=== PATIENT | male | born 1965 | race Caucasian/White ===

== ENCOUNTER 2018-12-24 13:04 | Inpatient (IN) | payer OTHER ==
[~2018-12-24 13:04] MED LIST: HEPARIN 10,000 UNITS/10 ML IV ONE
[2018-12-24] MEDS ORDERED: NACL 0.9% 1000 ML 1,000 ML IV ONE (13:10)
[2018-12-24] MEDS ORDERED: HEPARIN IV ONE (13:10)
[2018-12-24] MEDS ORDERED: PLAVIX PO ONE (13:14)
[2018-12-24] MEDS ORDERED: SUBLIMAZE ONE (13:20)
[2018-12-24] MEDS ORDERED: VERSED ONE (13:20)
[2018-12-24] MEDS ORDERED: HEPARIN 10,000 UNITS/10 ML ONE ×2 (13:20→13:25)
[2018-12-24] MEDS ORDERED: HEPARIN/NS 5000 UNIT/500ML(CATH LAB) 1,000 ML IR ONE (13:20)
[2018-12-24 13:22] LABS: Basophils # (Auto) 0.1 K/mm3 (0.0-0.1); Basophils % (Auto) 1.2 % (0.0-1.8); Eosinophils # (Auto) 0.1 K/mm3 (0.0-0.4); Eosinophils % (Auto) 1.2 % (0.0-4.3); Hemoglobin 15.4 gm/dl (11.8-15.2); Lymphocytes # (Auto) 2.2 K/mm3 (1.2-5.4); Lymphocytes % (Auto) 28.6 % (13.4-35.0); Mean Corpuscular HGB Conc 34 % (32-34); Mean Corpuscular Volume 90 fl (84-94); Monocytes # (Auto) 0.6 K/mm3 (0.0-0.8); Monocytes % (Auto) 7.7 % (0.0-7.3); Platelet Count 159 K/mm3 (140-440); Red Blood Count 4.98 M/mm3 (3.65-5.03); Red Cell Distribution Width 14.8 % (13.2-15.2)
--- NOTE | 2018-12-24 13:22 | Emergency Department Report ---
ED Chest Pain HPI - General Chief Complaint: Chest Pain Stated Complaint: STEMI Time Seen by Provider: 12/24/18 13:10 Source: EMS Mode of arrival: Stretcher Limitations: Language Barrier (stevedoring supervisor used Brazilian-speaking speaking) - History of Present Illness Initial Comments: 53-year-old male with a past medical history of diabetes which his "diet and exercise controlled" visits to the hospital complains of chest pain since 10 AM. Patient have a nausea and diaphoresis. Pain is constant. Patient presents to 5 department had a EKG does show ST elevation WI. Patient was subsequently transferred to the ED. He received aspirin and 1 nitroglycerin in route. Systolic blood pressure dropped to 98 after 1 nitroglyerin. Pt does not take any medications at home including aspirin. He states he does not smoke cigarettes. He denies history of previous heart problems. - Related Data Previous Rx's Medication Instructions Recorded Last Taken Type Cyclobenzaprine [Flexeril 10 MG 10 mg PO TID PRN #30 tablet 02/24/15 Unknown Rx TAB] Ibuprofen [Motrin] 800 mg PO Q8HR #30 tablet 02/24/15 Unknown Rx traMADol [Ultram 50 MG tab] 50 mg PO Q6HR PRN #20 tablet 02/24/15 Unknown Rx Allergies Allergy/AdvReac Type Severity Reaction Status Date / Time No Known Allergies Allergy Unverified 02/23/15 23:15 Heart Score - HEART Score History: Highly suspicious EKG: Significant ST-depression Age: 45-65 Risk factors: 1-2 risk factors Troponin: < normal limit HEART Score: 6 ED Review of Systems ROS: Stated complaint: STEMI Other details as noted in HPI Comment: All other systems reviewed and negative ED Past Medical Hx - Past Medical History Previous Medical History?: Yes Hx Dementia: Yes - Surgical History Past Surgical History?: No - Social History Smoking Status: Never Smoker Substance Use Type: None - Medications Home Medications: Home Medications Medication Instructions Recorded Confirmed Last Taken Type Cyclobenzaprine [Flexeril 10 MG 10 mg PO TID PRN #30 tablet 02/24/15 Unknown Rx TAB] Ibuprofen [Motrin] 800 mg PO Q8HR #30 tablet 02/24/15 Unknown Rx traMADol [Ultram 50 MG tab] 50 mg PO Q6HR PRN #20 tablet 02/24/15 Unknown Rx ED Physical Exam - General Limitations: Language Barrier - Other Other exam information: General: no acute distress Head: Atraumatic, normocephalic Eyes: Normal appearance, pupils equal and reactive to light, extraocular movements intact ENT: normal oropharynx Neck: Normal appearance, no stridor, no meningismus, no midline tenderness. Cardiovascular: Regular rate and rhythm Chest: Clear to auscultation, no wheezes, rales, or crackles Abdomen: nondistended, soft, nontender, no rebound or guarding Extremity: Normal appearance, no deformity, full range of motion, tenderness or leg edema Neuro: Alert and oriented 3, clear speech, no gross motor or sensory deficit Skin: No warmth, erythema, no diaphoresis ED Course Vital Signs 12/24/18 12/24/18 13:04 13:11 Temperature 98.6 F Pulse Rate 81 Respiratory 18 18 Rate Blood Pressure 151/86 O2 Sat by Pulse 99 Oximetry - Consultations Consultation #1: 12/24/18 13:05 case d/w DR Montiel, pt is a excavation laborer candidate. OUMAR score - Oumar Score Age > 65: (0) No Aspirin use within the Past 7 Days: (0) No 3 or more CAD Risk Factors: (0) No 2 or more Angina events in past 24 hrs: (1) Yes Known CAD with more than 50% Stenosis: (0) No Elevated Cardiac Markers: (0) No ST Deviation Greater than 0.5mm: (1) Yes OUMAR Score: 2 ED Medical Decision Making - Lab Data Result diagrams: 12/24/18 13:12 12/24/18 13:12 Lab Results 12/24/18 12/24/18 12/24/18 Range/Units 13:12 13:12 13:12 WBC 7.8 (4.5-11.0) K/mm3 RBC 4.98 (3.65-5.03) M/mm3 Hgb 15.4 H (11.8-15.2) gm/dl Hct 45.0 (35.5-45.6) % MCV 90 (84-94) fl MCH 31 (28-32) pg MCHC 34 (32-34) % RDW 14.8 (13.2-15.2) % Plt Count 159 (140-440) K/mm3 Lymph % (Auto) 28.6 (13.4-35.0) % [place] % (Auto) 7.7 H (0.0-7.3) % Eos % (Auto) 1.2 (0.0-4.3) % Baso % (Auto) 1.2 (0.0-1.8) % Lymph # 2.2 (1.2-5.4) K/mm3 [place] # 0.6 (0.0-0.8) K/mm3 Eos # 0.1 (0.0-0.4) K/mm3 Baso # 0.1 (0.0-0.1) K/mm3 Seg Neutrophils % 61.3 (40.0-70.0) % Seg Neutrophils # 4.8 (1.8-7.7) K/mm3 PT 12.8 (12.2-14.9) Sec. INR 0.99 (0.87-1.13) APTT 26.8 (24.2-36.6) Sec. Sodium 136 L (137-145) mmol/L Potassium 4.0 (3.6-5.0) mmol/L Chloride 97.7 L (98-107) mmol/L Carbon Dioxide 25 (22-30) mmol/L Anion Gap 17 mmol/L BUN 18 (9-20) mg/dL Creatinine 1.2 (0.8-1.5) mg/dL Estimated GFR > 60 ml/min BUN/Creatinine Ratio 15 % Glucose 191 H (75-100) mg/dL POC Glucose (70-105) Calcium 9.5 (8.4-10.2) mg/dL Total Creatine Kinase 205 H (55-170) units/L CK-MB (CK-2) 4.3 H (0.0-4.0) ng/mL CK-MB (CK-2) Rel Index 2.0 (0-4) Troponin T < 0.010 (0.00-0.029) ng/mL Blood Type Antibody Screen 12/24/18 12/24/18 Range/Units 13:12 13:26 WBC (4.5-11.0) K/mm3 RBC (3.65-5.03) M/mm3 Hgb (11.8-15.2) gm/dl Hct (35.5-45.6) % MCV (84-94) fl MCH (28-32) pg MCHC (32-34) % RDW (13.2-15.2) % Plt Count (140-440) K/mm3 Lymph % (Auto) (13.4-35.0) % [place] % (Auto) (0.0-7.3) % Eos % (Auto) (0.0-4.3) % Baso % (Auto) (0.0-1.8) % Lymph # (1.2-5.4) K/mm3 [place] # (0.0-0.8) K/mm3 Eos # (0.0-0.4) K/mm3 Baso # (0.0-0.1) K/mm3 Seg Neutrophils % (40.0-70.0) % Seg Neutrophils # (1.8-7.7) K/mm3 PT (12.2-14.9) Sec. INR (0.87-1.13) APTT (24.2-36.6) Sec. Sodium (137-145) mmol/L Potassium (3.6-5.0) mmol/L Chloride (98-107) mmol/L Carbon Dioxide (22-30) mmol/L Anion Gap mmol/L BUN (9-20) mg/dL Creatinine (0.8-1.5) mg/dL Estimated GFR ml/min BUN/Creatinine Ratio % Glucose (75-100) mg/dL POC Glucose 177 H (70-105) Calcium (8.4-10.2) mg/dL Total Creatine Kinase (55-170) units/L CK-MB (CK-2) (0.0-4.0) ng/mL CK-MB (CK-2) Rel Index (0-4) Troponin T (0.00-0.029) ng/mL Blood Type O POSITIVE Antibody Screen Negative - EKG Data -: EKG Interpreted by Me (inferior posterior WI likely involving the right ventricle vR elevation) EKG shows normal: sinus rhythm, axis (qrs 54), QRS complexes (qrsd 114), ST-T waves (st elevate inf and right lateral leads.) Rate: normal (79) - Medical Decision Making CODE Stemi called after pt arrival case d/w cardiology tx with heparin bolus and plavix stat transfer to excavation laborer stevedoring supervisor used - Differential Diagnosis mi, disection, pe, unstable angina Critical Care Time: No Critical care attestation.: If time is entered above; I have spent that time in minutes in the direct care of this critically ill patient, excluding procedure time. ED Disposition Clinical Impression: STEMI (ST elevation myocardial infarction) Disposition: 09 OP ADMIT IP TO THIS HOSP Is pt being admited?: Yes Does the pt Need Aspirin: Yes Condition: Stable Time of Disposition: 13:00 (admission/transfer to excavation laborer/Dr Buckner aware)
[2018-12-24] MEDS ORDERED: NACL 0.9% 500 ML 0 ML ONE (13:24)
[2018-12-24] MEDS ORDERED: HEPARIN/ 0.45% NACL-25,000 UNIT/500 ML ONE (13:25)
[2018-12-24] MEDS ORDERED: ATROPINE 0.1% (CARDIAC) ONE (13:32)
[2018-12-24 13:33] LABS: INR 0.99 (0.87-1.13); Partial Thromboplastin Time 26.8 Sec. (24.2-36.6)
[2018-12-24] MEDS ORDERED: XYLOCAINE 2% INFILTRATI ONE ×2 (13:35→13:49)
[2018-12-24] MEDS ORDERED: NITROGLYCERIN SYRINGE 3 ML ONE (13:37)
[2018-12-24] MEDS ORDERED: HEPARIN 10,000 UNITS/10 ML 5,000 UNIT in NACL 0.9% 500 ML 500 ML IR ONE ×2 (13:41→13:42)
[2018-12-24 13:42] LABS: Creatine Kinase MB 4.3 ng/mL (0.0-4.0)
[2018-12-24 13:43] LABS: BUN/Creatinine Ratio 15; Blood Urea Nitrogen 18 mg/dL (9-20); Calcium 9.5 mg/dL (8.4-10.2); Hemolysis Index 10
[2018-12-24] MEDS ORDERED: SUBLIMAZE IV ONE (13:46)
[2018-12-24] MEDS ORDERED: VERSED IV ONE (13:46)
[2018-12-24] MEDS ORDERED: ATROPINE IV ONE (13:57)
[2018-12-24] MEDS ORDERED: HEPARIN/ 0.45% NACL-25,000 UNIT/500 ML 25,000 UNIT/500 ML BAG IV SCH (14:00)
[2018-12-24] MEDS ORDERED: HEPARIN 10,000 UNITS/10 ML IV ONE ×2 (14:00→14:14)
[2018-12-24] MEDS ORDERED: ULTRAM PO PRN (14:14)
[2018-12-24] MEDS ORDERED: FLEXERIL PO PRN (14:14)
--- NOTE | 2018-12-24 14:14 | History and Physical Report ---
History of Present Illness Date of examination: 12/24/18 Date of admission: 12/24/2018 Chief complaint: Severe chest pain since 10 AM History of present illness: 53-year-old male with history of diabetes comes in for left-sided chest pain since 10 AM. Associated with nausea and diaphoresis. Radiation to the left arm present. Palpitations present. 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 Blood pressure dropped to systolics 98 after nitroglycerin. Patient is not on any medications. He says his diabetes is diet-controlled Past Medical History Previous Medical History?: Yes Arthritis Diabetes Surgical History Past Surgical History?: No Social History Smoking Status: Never Smoker Substance Use Type: None Family history Htn Medications Home Medications: Home Medications Medication Instructions Recorded Confirmed Last Taken Type Cyclobenzaprine [Flexeril 10 MG 10 mg PO TID PRN #30 tablet 02/24/15 Unknown Rx TAB] Ibuprofen [Motrin] 800 mg PO Q8HR #30 tablet 02/24/15 Unknown Rx traMADol [Ultram 50 MG tab] 50 mg PO Q6HR PRN #20 tablet 02/24/15 Unknown Rx Review of Systems ROS: Stated complaint: Severe chest pain associated with diaphoresis Otherwise review of systems is negative Other details as noted in HPI Comment: All other systems reviewed and negative Medications and Allergies Allergies Allergy/AdvReac Type Severity Reaction Status Date / Time No Known Allergies Allergy Unverified 02/23/15 23:15 Home Medications Medication Instructions Recorded Confirmed Last Taken Type Cyclobenzaprine [Flexeril 10 MG 10 mg PO TID PRN #30 tablet 02/24/15 12/24/18 Unknown Rx TAB] Ibuprofen [Motrin] 800 mg PO Q8HR #30 tablet 02/24/15 12/24/18 Unknown Rx traMADol [Ultram 50 MG tab] 50 mg PO Q6HR PRN #20 tablet 02/24/15 12/24/18 Unknown Rx Exam - Constitutional Vitals: Temp Pulse Resp BP Pulse Ox 98.6 F 81 18 151/86 99 12/24/18 13:04 12/24/18 13:04 12/24/18 13:11 12/24/18 13:04 12/24/18 13:11 General appearance: Present: no acute distress, well-nourished - EENT Eyes: Present: PERRL ENT: hearing intact, clear oral mucosa - Neck Neck: Present: supple, normal ROM - Respiratory Respiratory effort: normal Respiratory: bilateral: CTA - Cardiovascular Heart rate: 78 Rhythm: regular Heart Sounds: Present: S1 & S2. Absent: rub, click - Extremities Extremities: no ischemia, pulses intact, pulses symmetrical, No edema Peripheral Pulses: within normal limits - Abdominal General gastrointestinal: Present: soft, non-tender, non-distended, normal bowel sounds Male genitourinary: Present: normal - Integumentary Integumentary: Present: clear, warm, dry - Musculoskeletal Musculoskeletal: gait normal, strength equal bilaterally - Psychiatric Psychiatric: appropriate mood/affect, intact judgment & insight - Neurologic Neurologic: CNII-XII intact, moves all extremities - Allied Health Allied health notes reviewed: nursing, case management Results - Labs CBC & Chem 7: 12/24/18 13:12 12/24/18 13:12 Labs: Laboratory Last Values WBC 7.8 K/mm3 (4.5-11.0) 12/24/18 13:12 RBC 4.98 M/mm3 (3.65-5.03) 12/24/18 13:12 Hgb 15.4 gm/dl (11.8-15.2) H 12/24/18 13:12 Hct 45.0 % (35.5-45.6) 12/24/18 13:12 MCV 90 fl (84-94) 12/24/18 13:12 MCH 31 pg (28-32) 12/24/18 13:12 MCHC 34 % (32-34) 12/24/18 13:12 RDW 14.8 % (13.2-15.2) 12/24/18 13:12 Plt Count 159 K/mm3 (140-440) 12/24/18 13:12 Lymph % (Auto) 28.6 % (13.4-35.0) 12/24/18 13:12 [place] % (Auto) 7.7 % (0.0-7.3) H 12/24/18 13:12 Eos % (Auto) 1.2 % (0.0-4.3) 12/24/18 13:12 Baso % (Auto) 1.2 % (0.0-1.8) 12/24/18 13:12 Lymph # 2.2 K/mm3 (1.2-5.4) 12/24/18 13:12 [place] # 0.6 K/mm3 (0.0-0.8) 12/24/18 13:12 Eos # 0.1 K/mm3 (0.0-0.4) 12/24/18 13:12 Baso # 0.1 K/mm3 (0.0-0.1) 12/24/18 13:12 Seg Neutrophils % 61.3 % (40.0-70.0) 12/24/18 13:12 Seg Neutrophils # 4.8 K/mm3 (1.8-7.7) 12/24/18 13:12 PT 12.8 Sec. (12.2-14.9) 12/24/18 13:12 INR 0.99 (0.87-1.13) 12/24/18 13:12 APTT 26.8 Sec. (24.2-36.6) 12/24/18 13:12 Sodium 136 mmol/L (137-145) L 12/24/18 13:12 Potassium 4.0 mmol/L (3.6-5.0) 12/24/18 13:12 Chloride 97.7 mmol/L (98-107) L 12/24/18 13:12 Carbon Dioxide 25 mmol/L (22-30) 12/24/18 13:12 17 mmol/L 12/24/18 13:12 BUN 18 mg/dL (9-20) 12/24/18 13:12 1.2 mg/dL (0.8-1.5) 12/24/18 13:12 Estimated GFR > 60 ml/min 12/24/18 13:12 15 % 12/24/18 13:12 Glucose 191 mg/dL (75-100) H 12/24/18 13:12 POC Glucose 177 (70-105) H 12/24/18 13:26 Calcium 9.5 mg/dL (8.4-10.2) 12/24/18 13:12 205 units/L (55-170) H 12/24/18 13:12 CK-MB (CK-2) 4.3 ng/mL (0.0-4.0) H 12/24/18 13:12 CK-MB (CK-2) Rel Index 2.0 (0-4) 12/24/18 13:12 < 0.010 ng/mL (0.00-0.029) 12/24/18 13:12 Short CBC 12/24/18 Range/Units 13:12 WBC 7.8 (4.5-11.0) K/mm3 Hgb 15.4 H (11.8-15.2) gm/dl Hct 45.0 (35.5-45.6) % Plt Count 159 (140-440) K/mm3 BMP 12/24/18 13:12 Sodium 136 L Potassium 4.0 Chloride 97.7 L Carbon Dioxide 25 BUN 18 Creatinine 1.2 Glucose 191 H Calcium 9.5 Cardiac Enzymes 12/24/18 Range/Units 13:12 Total Creatine Kinase 205 H (55-170) units/L CK-MB (CK-2) 4.3 H (0.0-4.0) ng/mL Troponin T < 0.010 (0.00-0.029) ng/mL - Imaging and Cardiology EKG: report reviewed (EKG consistent with inferior wall STEMI, elevated ST T waves in lead 2-lead 3 and aVF and also posterior leads) Chest x-ray: report reviewed (no acute findings) Assessment and Plan Assessment and plan: Critical care statement The high probability of a clinically significant, sudden or life-threatening deterioration of the pulmonary, cardiac, and the other systems required my full and diabetic tension, intervention and personal management. The aggregate K time was 40 minutes. This time is in addition to the time spent performing reported procedures but includes the following Data review and interpretation Patient assessment and monitoring of vital signs Documentation Medication orders and management. Advance Directives: Yes (full code) VTE prophylaxis?: Chemical Plan of care discussed with patient/family: Yes - Patient Problems (1) STEMI (ST elevation myocardial infarction) Current Visit: Yes Status: Acute Qualifiers: Involved coronary artery: right coronary artery Qualified Code(s): I21.11 - ST elevation (STEMI) myocardial infarction involving right coronary artery Plan to address problem: Patient had emergency cardiac cath which revealed subtotal occlusion of the mid right coronary artery. It was treated with a 2.5 mm drug-eluting stent with excellent angiographic results and no complications. Patient being admitted to ICU for post-cath management dual oral antiplatelet therapy. Echocardiogram for LV function and valvular function ordered. Continue heparin ip. (2) Type 2 diabetes mellitus Current Visit: Yes Status: Chronic Qualifiers: Diabetes mellitus chcf insulin use: without exterminator termite use Plan to address problem: A1c is 5.8 Accu-Cheks and coverage. Patient may be discharged on metformin Will defer to the primary team (3) DVT prophylaxis Current Visit: Yes Status: Acute Plan to address problem: On heparin drip and GI prophylaxis
[2018-12-24] MEDS ORDERED: IMDUR PO SCH (15:00)
[2018-12-24] MEDS ORDERED: NACL 0.9% 1000 ML 1,000 ML IV SCH (15:00)
[2018-12-24] MEDS ORDERED: SODIUM CHLORIDE FLUSH SYRINGE 10 ML IV PRN (15:52)
[2018-12-24] MEDS ORDERED: DILAUDID IV PRN (15:52)
[2018-12-24] MEDS ORDERED: HumaLOG SUB-Q ONE (15:59)
--- NOTE | 2018-12-24 15:59 | Cardiac Catherization Report ---
CARDIAC CATHETERIZATION AND CORONARY ANGIOPLASTY REPORT REASON FOR STUDY: The patient is a 53-year-old man who presented to the Emergency Room with chest pain and ECG consistent with an acute ST elevation inferior wall myocardial infarction. Emergency cardiac catheterization protocol was activated. PROCEDURE: The patient was prepped and draped in a sterile fashion under emergency protocol. The right femoral artery was entered using Seldinger technique followed by placement of a 6-Romansh sheath. A #4 left Mirna catheter was used for left coronary angiography. We then exchanged for a #4 right Mirna guiding catheter, which was used for right coronary angiography The angiograms were reviewed. CORONARY ANGIOGRAPHY: Left main coronary artery was free of significant disease. Left anterior descending artery contained diffuse atherosclerosis of its proximal and mid segments. A medium sized mid diagonal branch of the LAD contained a 60-70% proximal stenosis extending from its ostium. The circumflex system also contained diffuse mild to moderate atherosclerosis, but no severe focal obstructive lesions. The right coronary artery was dominant. This vessel contained diffuse moderate atherosclerosis of its proximal segment, following this there was a focal, greater than 99% stenosis of the mid segment, associated with OUMAR 2 antegrade flow. This was the infarct related lesion. CORONARY ANGIOPLASTY: A 0.014 inch [employer] 50 guidewire was introduced into the right coronary artery, across the lesional segment. We used a 2.5 mm balloon catheter and predilated the lesion. Following this, a 2.5 x 12 mm Resolute drug-eluting stent was deployed across the lesional segment and inflated to optimum pressures. Following stenting, there was an excellent angiographic result, 0 residual stenosis and OUMAR 3 flow was restored in the right coronary artery. Procedure was well tolerated by the patient and there were no complications. CONCLUSION: 1. Acute inferior wall ST elevation myocardial infarction. 2. Emergency cardiac catheterization. 3. Greater than 99% stenosis of the mid right coronary artery was the infarct-related lesion. 4. Successful primary angioplasty and stenting of the right coronary artery, with deployment of a 2.5 x 12 mm drug-eluting stent. The patient will be admitted to the CCU for post-AZ management. An echocardiogram will be done for left ventricular function and valvular function assessment. JOB# [id number] CA/NTS
--- NOTE | 2018-12-24 16:10 | XRay Report ---
CHEST 1 VIEW INDICATION: chest pain. COMPARISON: None FINDINGS: Support devices: None. Heart: Within normal limits. Lungs/Pleura: No acute air space or interstitial disease. Additional findings: None. IMPRESSION: No acute findings. Signer Name: Andrew Duncan Jr, MD Signed: 12/24/2018 4:06 PM Workstation Name: [id number]
[2018-12-24] MEDS: IMDUR PO SCH (18:00)
[2018-12-24] MEDS ORDERED: HEPARIN/ 0.45% NACL-25,000 UNIT/500 ML 25,000 UNIT/500 ML BAG ONE (19:11)
--- NOTE | 2018-12-24 21:40 | Event Note ---
Date: 12/24/18 53-year-old man who presented with chest pain and EKG consistent with acute inferior wall ST elevation myocardial infarction. Emergency cardiac catheterization revealed subtotal occlusion of the mid right coronary artery, treated with a 2.5 mm drug-eluting stent, excellent angiographic result, no complications. Admit to the CCU, supportive post-interventional management, dual oral antiplatelet therapy, guideline directed medical therapy for coronary artery disease. Echocardiogram for left ventricular function and valvular function assessment.
[2018-12-24] MEDS: LOPRESSOR PO SCH (21:55)
[2018-12-24] MEDS: SODIUM CHLORIDE FLUSH SYRINGE 10 ML IV SCH (21:57)
--- NOTE | 2018-12-25 03:06 | XRay Report ---
CHEST - 1 VIEW INDICATION: post pci COMPARISON: Yesterday FINDINGS: Support devices: Stable support device positioning. Heart: Stable cardiomediastinal silhouette. Lungs/pleura: Clear lungs. Additional findings: None. IMPRESSION: Unchanged exam. Signer Name: Gorge Diaz MD Signed: 12/25/2018 3:02 AM Workstation Name: [id number]
[2018-12-25 03:09] LABS: Basophils # (Auto) 0.1 K/mm3 (0.0-0.1); Basophils % (Auto) 0.7 % (0.0-1.8); Eosinophils # (Auto) 0.1 K/mm3 (0.0-0.4); Hematocrit 41.4 % (35.5-45.6); Lymphocytes # (Auto) 2.4 K/mm3 (1.2-5.4); Lymphocytes % (Auto) 27.3 % (13.4-35.0); Mean Corpuscular HGB Conc 34 % (32-34); Mean Corpuscular Volume 92 fl (84-94); Monocytes # (Auto) 0.8 K/mm3 (0.0-0.8); Monocytes % (Auto) 9.2 % (0.0-7.3); Platelet Count 156 K/mm3 (140-440); Red Blood Count 4.52 M/mm3 (3.65-5.03); Red Cell Distribution Width 15.2 % (13.2-15.2)
[2018-12-25 03:45] LABS: Creatine Kinase MB 221.8 ng/mL (0.0-4.0)
[2018-12-25 03:46] LABS: BUN/Creatinine Ratio 16; Blood Urea Nitrogen 14 mg/dL (9-20); Calcium 8.7 mg/dL (8.4-10.2); Hemolysis Index 4
[2018-12-25 04:15] LABS: Chol/HDL Ratio 4.95 %; HDL Cholesterol 41 mg/dL (40-59); LDL Cholesterol,Direct 164 mg/dL (50-130)
[2018-12-25] MEDS: HumaLOG SUB-Q SCH ×4 (07:30→22:36)
--- NOTE | 2018-12-25 09:38 | Progress Note ---
Assessment and Plan Assessment and plan: STEMI s/p PCI , coronary stent placement RCA On Aspirin, Plavix, Imdur, Lipitor, Lopressor Diabetes mellitus type 2. Fingerstick qac and HS Full code status The high probability of a clinically significant, sudden or life threatening deterioration of the [2] system(s) required my full and direct attention, intervention and personal management. The aggregate critical care time was [32] minutes. This time is in addition to time spent performing reported procedures but includes the following: [x] Data Review and interpretation [x] Patient assessment and monitoring of vital signs [x] Documentation [x] Medication orders and management History Interval history: Patient presented with chest pain, found to have STEMI s/p PCI and stent No more chest pain Hospitalist Physical - Physical exam Narrative exam: Gen: Not in acute distress, lying in bed, HEENT: Normocephalic, atraumatic Neck: supple, no JVD Heart: S1 and S2 reg, no murmurs, rubs or gallop Lungs: Clear, no crackles, no rhonchi Abd: soft, non tender, non distended, normal BS, Ext: No edema, no clubbing, no cyanosis Neuro: Awake,alert, Oriented X 3. No focal neurological Psych:normal mood - Constitutional Vitals: Temp Pulse Resp BP Pulse Ox 98.8 F 50 L 14 108/69 99 12/25/18 08:00 12/25/18 09:00 12/25/18 09:00 12/25/18 09:00 12/25/18 09:00 General appearance: Present: no acute distress, well-nourished Results - Labs CBC & Chem 7: 12/25/18 03:00 12/25/18 03:00 Labs: Laboratory Last Values WBC 8.8 K/mm3 (4.5-11.0) 12/25/18 03:00 RBC 4.52 M/mm3 (3.65-5.03) 12/25/18 03:00 Hgb 14.0 gm/dl (11.8-15.2) 12/25/18 03:00 Hct 41.4 % (35.5-45.6) 12/25/18 03:00 MCV 92 fl (84-94) 12/25/18 03:00 MCH 31 pg (28-32) 12/25/18 03:00 MCHC 34 % (32-34) 12/25/18 03:00 RDW 15.2 % (13.2-15.2) 12/25/18 03:00 Plt Count 156 K/mm3 (140-440) 12/25/18 03:00 Lymph % (Auto) 27.3 % (13.4-35.0) 12/25/18 03:00 [place] % (Auto) 9.2 % (0.0-7.3) H 12/25/18 03:00 Eos % (Auto) 1.0 % (0.0-4.3) 12/25/18 03:00 Baso % (Auto) 0.7 % (0.0-1.8) 12/25/18 03:00 Lymph # 2.4 K/mm3 (1.2-5.4) 12/25/18 03:00 [place] # 0.8 K/mm3 (0.0-0.8) 12/25/18 03:00 Eos # 0.1 K/mm3 (0.0-0.4) 12/25/18 03:00 Baso # 0.1 K/mm3 (0.0-0.1) 12/25/18 03:00 Seg Neutrophils % 61.8 % (40.0-70.0) 12/25/18 03:00 Seg Neutrophils # 5.5 K/mm3 (1.8-7.7) 12/25/18 03:00 PT 12.8 Sec. (12.2-14.9) 12/24/18 13:12 INR 0.99 (0.87-1.13) 12/24/18 13:12 APTT 26.8 Sec. (24.2-36.6) 12/24/18 13:12 241 (74-137) H 12/24/18 14:18 Heparin Anti-Xa Level 0.28 U.I./ml (0.3-0.7) L 12/25/18 00:33 Sodium 141 mmol/L (137-145) 12/25/18 03:00 Potassium 4.3 mmol/L (3.6-5.0) 12/25/18 03:00 Chloride 102.5 mmol/L (98-107) 12/25/18 03:00 Carbon Dioxide 26 mmol/L (22-30) 12/25/18 03:00 17 mmol/L 12/25/18 03:00 BUN 14 mg/dL (9-20) 12/25/18 03:00 0.9 mg/dL (0.8-1.5) 12/25/18 03:00 Estimated GFR > 60 ml/min 12/25/18 03:00 16 % 12/25/18 03:00 Glucose 109 mg/dL (75-100) H 12/25/18 03:00 POC Glucose 128 (70-105) H 12/25/18 08:02 5.8 % (4-6) 12/24/18 13:12 Calcium 8.7 mg/dL (8.4-10.2) 12/25/18 03:00 2324 units/L (55-170) H 12/25/18 03:00 CK-MB (CK-2) 221.8 ng/mL (0.0-4.0) H 12/25/18 03:00 CK-MB (CK-2) Rel Index 9.5 (0-4) H 12/25/18 03:00 6.000 ng/mL (0.00-0.029) H* D 12/25/18 03:00 Triglycerides 128 mg/dL (2-149) 12/25/18 03:00 Cholesterol 203 mg/dL (50-199) H 12/25/18 03:00 164 mg/dL (50-130) H 12/25/18 03:00 41 mg/dL (40-59) 12/25/18 03:00 4.95 % 12/25/18 03:00 Blood Type O POSITIVE 12/24/18 13:12 Antibody Screen Negative 12/24/18 13:12 Active Medications - Current Medications Current Medications: Generic Name Dose Route Start Last Admin Trade Name Freq PRN Reason Stop Dose Admin Aspirin 325 mg 12/25/18 10:00 Ecotrin PO QDAY PAKO Atorvastatin Calcium 40 mg 12/24/18 22:00 12/24/18 21:55 Lipitor PO 40 mg QHS PAKO Administration Clopidogrel Bisulfate 75 mg 12/25/18 10:00 Plavix PO QDAY PAKO Cyclobenzaprine HCl 10 mg 12/24/18 14:14 Flexeril PO TID PRN Muscle Spasm Hydromorphone HCl 1 mg 12/24/18 15:52 Dilaudid IV Q3H PRN Pain , Severe (7-10) Sodium Chloride 1,000 mls @ 42 mls/hr 12/24/18 13:10 12/24/18 18:19 Nacl 0.9% 1000 Ml IV 12/25/18 12:58 0 mls/hr ONCE ONE Infusion Insulin Human Lispro 0 unit 12/25/18 07:30 12/25/18 07:30 Humalog SUB-Q Not Given [facility] Protocol Isosorbide Mononitrate 30 mg 12/24/18 18:00 12/24/18 18:00 Imdur PO 30 mg QDAY PAKO Administration Metoprolol Tartrate 25 mg 12/24/18 22:00 12/24/18 21:55 Lopressor PO 25 mg BID PAKO Administration Sodium Chloride 10 ml 12/24/18 22:00 12/24/18 21:57 Sodium Chloride Flush Syringe 10 Ml IV 10 ml BID PAKO Administration Sodium Chloride 10 ml 12/24/18 15:52 Sodium Chloride Flush Syringe 10 Ml IV PRN PRN LINE FLUSH Tramadol HCl 50 mg 12/24/18 14:14 Ultram PO Q6HR PRN Pain
[2018-12-25] MEDS: LOPRESSOR PO SCH ×2 (10:00→22:35)
[2018-12-25] MEDS: IMDUR PO SCH (10:00)
[2018-12-25] MEDS: PLAVIX PO SCH (10:00)
[2018-12-25] MEDS: ECOTRIN PO SCH (10:00)
[2018-12-25] MEDS ORDERED: ASPIRIN PO SCH (10:00)
[2018-12-25] MEDS: SODIUM CHLORIDE FLUSH SYRINGE 10 ML IV SCH ×2 (10:00→22:35)
--- NOTE | 2018-12-25 10:14 | Consultation ---
History of Present Illness - Reason for Consult Consult date: 12/25/18 STEMI Requesting physician: FRANNY QUINTEOR - History of Present Illness 53 y/o male admitted with STEMI. S/P Stent to Mid RCA. No chest pain this am. Blood pressure stable. Tolerating PO. Past History Past Medical History: diabetes Past Surgical History: No surgical history Social history: no significant social history Family history: no significant family history Medications and Allergies Allergies Allergy/AdvReac Type Severity Reaction Status Date / Time No Known Allergies Allergy Unverified 02/23/15 23:15 Home Medications Medication Instructions Recorded Confirmed Last Taken Type Cyclobenzaprine [Flexeril 10 MG 10 mg PO TID PRN #30 tablet 02/24/15 12/24/18 Unknown Rx TAB] Ibuprofen [Motrin] 800 mg PO Q8HR #30 tablet 02/24/15 12/24/18 Unknown Rx traMADol [Ultram 50 MG tab] 50 mg PO Q6HR PRN #20 tablet 02/24/15 12/24/18 Unknown Rx Active Meds: Active Medications Aspirin (Ecotrin) 325 mg PO QDAY [facility] Atorvastatin Calcium (Lipitor) 40 mg PO QHS [facility] Last Admin: 12/24/18 21:55 Dose: 40 mg Documented by: Clopidogrel Bisulfate (Plavix) 75 mg PO QDAY [facility] Cyclobenzaprine HCl (Flexeril) 10 mg PO TID PRN PRN Reason: Muscle Spasm Hydromorphone HCl (Dilaudid) 1 mg IV Q3H PRN PRN Reason: Pain , Severe (7-10) Sodium Chloride (Nacl 0.9% 1000 Ml) 1,000 mls @ 42 mls/hr IV ONCE ONE Stop: 12/25/18 12:58 Last Infusion: 12/24/18 18:19 Dose: 0 mls/hr Documented by: Insulin Human Lispro (Humalog) 0 unit SUB-Q ACHS [facility]; Protocol Last Admin: 12/25/18 07:30 Dose: Not Given Documented by: Isosorbide Mononitrate (Imdur) 30 mg PO QDAY [facility] Last Admin: 12/24/18 18:00 Dose: 30 mg Documented by: Metoprolol Tartrate (Lopressor) 25 mg PO BID [facility] Last Admin: 12/24/18 21:55 Dose: 25 mg Documented by: Sodium Chloride (Sodium Chloride Flush Syringe 10 Ml) 10 ml IV BID [facility] Last Admin: 12/24/18 21:57 Dose: 10 ml Documented by: Sodium Chloride (Sodium Chloride Flush Syringe 10 Ml) 10 ml IV PRN PRN PRN Reason: LINE FLUSH Tramadol HCl (Ultram) 50 mg PO Q6HR PRN PRN Reason: Pain Review of Systems All systems: negative Exam - Constitutional Vitals: Temp Pulse Resp BP Pulse Ox 98.8 F 50 L 14 108/69 99 12/25/18 08:00 12/25/18 09:00 12/25/18 09:00 12/25/18 09:00 12/25/18 09:00 Results - Labs CBC & Chem 7: 12/25/18 03:00 12/25/18 03:00 Labs: Abnormal lab results 12/24/18 12/24/18 12/24/18 Range/Units 13:12 13:12 13:26 Hgb 15.4 H (11.8-15.2) gm/dl [place] % (Auto) 7.7 H (0.0-7.3) % Activated Clotting Time (74-137) Heparin Anti-Xa Level (0.3-0.7) U.I./ml Sodium 136 L (137-145) mmol/L Chloride 97.7 L (98-107) mmol/L Glucose 191 H (75-100) mg/dL POC Glucose 177 H (70-105) Total Creatine Kinase 205 H (55-170) units/L CK-MB (CK-2) 4.3 H (0.0-4.0) ng/mL CK-MB (CK-2) Rel Index (0-4) Troponin T (0.00-0.029) ng/mL Cholesterol (50-199) mg/dL LDL Cholesterol Direct (50-130) mg/dL 12/24/18 12/24/18 12/24/18 Range/Units 14:05 14:18 21:29 Hgb (11.8-15.2) gm/dl [place] % (Auto) (0.0-7.3) % Activated Clotting Time 175 H 241 H (74-137) Heparin Anti-Xa Level (0.3-0.7) U.I./ml Sodium (137-145) mmol/L Chloride (98-107) mmol/L Glucose (75-100) mg/dL POC Glucose 132 H (70-105) Total Creatine Kinase (55-170) units/L CK-MB (CK-2) (0.0-4.0) ng/mL CK-MB (CK-2) Rel Index (0-4) Troponin T (0.00-0.029) ng/mL Cholesterol (50-199) mg/dL LDL Cholesterol Direct (50-130) mg/dL 12/25/18 12/25/18 12/25/18 Range/Units 00:33 03:00 03:00 Hgb (11.8-15.2) gm/dl [place] % (Auto) 9.2 H (0.0-7.3) % Activated Clotting Time (74-137) Heparin Anti-Xa Level 0.28 L (0.3-0.7) U.I./ml Sodium (137-145) mmol/L Chloride (98-107) mmol/L Glucose 109 H (75-100) mg/dL POC Glucose (70-105) Total Creatine Kinase 2324 H (55-170) units/L CK-MB (CK-2) 221.8 H (0.0-4.0) ng/mL CK-MB (CK-2) Rel Index 9.5 H (0-4) Troponin T 6.000 H* D (0.00-0.029) ng/mL Cholesterol 203 H (50-199) mg/dL LDL Cholesterol Direct 164 H (50-130) mg/dL 12/25/18 Range/Units 08:02 Hgb (11.8-15.2) gm/dl [place] % (Auto) (0.0-7.3) % Activated Clotting Time (74-137) Heparin Anti-Xa Level (0.3-0.7) U.I./ml Sodium (137-145) mmol/L Chloride (98-107) mmol/L Glucose (75-100) mg/dL POC Glucose 128 H (70-105) Total Creatine Kinase (55-170) units/L CK-MB (CK-2) (0.0-4.0) ng/mL CK-MB (CK-2) Rel Index (0-4) Troponin T (0.00-0.029) ng/mL Cholesterol (50-199) mg/dL LDL Cholesterol Direct (50-130) mg/dL - Imaging and Cardiology Chest x-ray: image reviewed (Enlarge cardiac silohuette, normal lung parenchyma) Assessment and Plan 53 y/o male stemi, status post PCI Stable for transfer out of the unit.
--- NOTE | 2018-12-25 10:59 | Progress Note ---
<JEBTAD - Last Filed: 12/25/18 10:56> Assessment and Plan - Patient Problems (1) STEMI (ST elevation myocardial infarction) Current Visit: Yes Status: Acute Qualifiers: Plan to address problem: Acute inferior wall STEMI Emergency cardiac catheterization revealed subtotal occlusion of the mid right coronary artery, treated with a 2.5 mm drug-eluting stent on plavix and aspirin for DAPT Recommendations: Echocardiogram for left ventricular function and valvular function assessment. Continue medical therapy for coronary artery disease. Ok for transfer to telemetry. Subjective Date of service: 12/25/18 Interval history: Patient speaks little Sami. He denies chest pain. No hematoma of cardiac cath site. Objective Vital Signs Temp Pulse Pulse Resp BP Pulse Ox 12/25/18 10:00 50 L 105/51 12/25/18 09:00 50 L 14 108/69 99 12/25/18 08:51 56 L 21 101/71 99 12/25/18 08:41 57 L 18 103/61 98 12/25/18 08:30 49 L 12 103/61 98 12/25/18 08:21 45 L 20 104/62 98 12/25/18 08:11 51 L 24 98/58 98 12/25/18 08:00 98.8 F 53 L 54 L 19 98/58 99 12/25/18 07:58 97 12/25/18 07:51 40 L 18 111/60 97 12/25/18 07:41 41 L 18 104/56 97 12/25/18 07:30 43 L 18 104/56 96 12/25/18 07:21 43 L 19 107/68 99 12/25/18 07:11 48 L 24 107/69 97 12/25/18 07:00 65 18 107/69 97 12/25/18 06:51 69 22 109/57 97 12/25/18 06:41 38 L 17 111/58 99 12/25/18 06:30 37 L 17 111/58 97 12/25/18 06:21 51 L 20 113/60 98 12/25/18 06:11 53 L 18 107/63 96 12/25/18 06:00 41 L 22 107/63 98 12/25/18 05:51 38 L 16 104/60 99 12/25/18 05:41 41 L 17 102/58 97 12/25/18 05:30 37 L 17 102/58 97 12/25/18 05:21 47 L 17 110/73 98 12/25/18 05:11 42 L 22 107/61 99 12/25/18 05:00 38 L 17 107/61 98 12/25/18 04:51 40 L 19 115/60 99 12/25/18 04:41 39 L 17 118/59 99 12/25/18 04:30 40 L 20 118/59 96 12/25/18 04:21 40 L 17 118/70 99 12/25/18 04:11 40 L 18 109/61 99 12/25/18 04:01 50 L 17 109/61 97 12/25/18 04:00 98.0 F 40 L 18 109/61 99 12/25/18 03:51 42 L 20 104/61 99 12/25/18 03:41 40 L 18 103/61 98 12/25/18 03:30 42 L 19 103/61 97 12/25/18 03:21 38 L 19 108/62 98 12/25/18 03:11 37 L 18 103/58 98 12/25/18 03:00 40 L 19 103/58 95 12/25/18 02:51 40 L 19 107/63 99 12/25/18 02:41 41 L 17 110/61 99 12/25/18 02:30 46 L 7 L 110/61 97 12/25/18 02:21 52 L 10 L 101/55 98 12/25/18 02:11 40 L 17 111/62 98 12/25/18 02:00 50 L 14 111/62 96 12/25/18 01:51 45 L 22 109/65 98 12/25/18 01:41 55 L 18 110/64 97 12/25/18 01:30 40 L 18 110/64 98 12/25/18 01:21 40 L 17 105/62 98 12/25/18 01:11 36 L 20 111/60 99 12/25/18 01:00 38 L 16 111/60 98 12/25/18 00:51 47 L 22 101/59 99 12/25/18 00:41 47 L 21 102/61 98 12/25/18 00:31 49 L 11 L 102/61 96 12/25/18 00:21 47 L 13 96 12/25/18 00:10 39 L 11 L 108/61 98 12/25/18 00:01 43 L 21 108/61 98 12/25/18 00:00 98.1 F 38 L 18 108/61 96 12/24/18 23:50 41 L 18 104/61 96 12/24/18 23:40 42 L 19 109/63 96 12/24/18 23:30 41 L 19 109/63 95 12/24/18 23:20 43 L 19 107/64 97 12/24/18 23:10 41 L 19 110/64 97 12/24/18 23:00 40 L 20 106/67 96 12/24/18 22:50 42 L 18 106/67 97 12/24/18 22:40 41 L 19 101/65 97 12/24/18 22:30 41 L 17 101/65 97 12/24/18 22:20 41 L 19 103/61 96 12/24/18 22:10 43 L 20 107/59 97 12/24/18 22:00 38 L 20 106/61 98 12/24/18 21:55 45 L 106/61 12/24/18 21:50 43 L 20 106/61 97 12/24/18 21:40 54 L 15 113/68 98 12/24/18 21:30 52 L 23 113/68 96 12/24/18 21:20 47 L 22 112/66 98 12/24/18 21:10 52 L 21 112/66 98 12/24/18 21:00 52 L 21 120/60 97 12/24/18 20:50 47 L 16 120/60 97 12/24/18 20:40 51 L 17 125/70 97 12/24/18 20:30 50 L 16 118/71 97 12/24/18 20:20 52 L 15 118/71 96 12/24/18 20:10 52 L 16 123/69 97 12/24/18 20:00 98.7 F 43 L 19 129/79 97 12/24/18 19:50 64 14 129/79 97 12/24/18 19:40 56 L 18 117/65 97 12/24/18 19:30 58 L 17 119/61 98 12/24/18 19:20 54 L 21 119/61 98 12/24/18 19:10 49 L 20 121/61 97 12/24/18 19:00 52 L 13 117/75 98 12/24/18 18:50 55 L 16 117/75 100 12/24/18 18:40 61 16 99 12/24/18 18:30 58 L 11 L 98 12/24/18 18:24 55 L 99 12/24/18 18:00 63 111/65 12/24/18 17:00 51 L 12 113/62 100 12/24/18 16:30 55 L 11 L 99/66 100 12/24/18 16:00 55 L 16 119/65 99 12/24/18 15:30 62 18 115/62 98 12/24/18 15:15 88 13 115/68 99 12/24/18 15:00 83 23 100/67 98 12/24/18 14:45 90 15 106/63 93 12/24/18 14:30 97.0 F L 93 H 21 98/60 98 12/24/18 13:11 18 99 12/24/18 13:04 98.6 F 81 18 151/86 - Physical Examination General: No Apparent Distress HEENT: Positive: PERRL Neck: Positive: trachea midline Cardiac: Positive: Reg Rate and Rhythm Lungs: Positive: Decreased Breath Sounds Neuro: Positive: Grossly Intact Extremities: Absent: edema - Labs and Meds Cardiac Enzymes 12/24/18 12/25/18 Range/Units 13:12 03:00 CK-MB (CK-2) 4.3 H 221.8 H (0.0-4.0) ng/mL Coagulation 12/24/18 Range/Units 13:12 PT 12.8 (12.2-14.9) Sec. INR 0.99 (0.87-1.13) APTT 26.8 (24.2-36.6) Sec. Lipids 12/25/18 Range/Units 03:00 Triglycerides 128 (2-149) mg/dL Cholesterol 203 H (50-199) mg/dL HDL Cholesterol 41 (40-59) mg/dL Cholesterol/HDL Ratio 4.95 % CBC 12/24/18 12/25/18 Range/Units 13:12 03:00 WBC 7.8 8.8 (4.5-11.0) K/mm3 RBC 4.98 4.52 (3.65-5.03) M/mm3 Hgb 15.4 H 14.0 (11.8-15.2) gm/dl Hct 45.0 41.4 (35.5-45.6) % Plt Count 159 156 (140-440) K/mm3 Lymph # 2.2 2.4 (1.2-5.4) K/mm3 [place] # 0.6 0.8 (0.0-0.8) K/mm3 Eos # 0.1 0.1 (0.0-0.4) K/mm3 Baso # 0.1 0.1 (0.0-0.1) K/mm3 Comprehensive Metabolic Panel 12/24/18 12/25/18 Range/Units 13:12 03:00 Sodium 136 L 141 (137-145) mmol/L Potassium 4.0 4.3 (3.6-5.0) mmol/L Chloride 97.7 L 102.5 (98-107) mmol/L Carbon Dioxide 25 26 (22-30) mmol/L BUN 18 14 (9-20) mg/dL Creatinine 1.2 0.9 (0.8-1.5) mg/dL Glucose 191 H 109 H (75-100) mg/dL Calcium 9.5 8.7 (8.4-10.2) mg/dL <FRANNY ALDRICH - Last Filed: 12/25/18 19:57> Assessment and Plan I have seen and evaluated the patient and agree with the assessment and plan. Continue current medical therapy. Echo pending. Objective Vital Signs Temp Pulse Pulse Resp BP Pulse Ox 12/25/18 18:43 98.7 F 56 L 18 116/69 99 12/25/18 13:00 50 L 22 114/57 99 12/25/18 12:51 55 L 11 L 114/57 98 12/25/18 12:41 52 L 26 H 110/62 98 12/25/18 12:30 52 L 12 110/62 98 12/25/18 12:21 53 L 18 107/65 98 12/25/18 12:11 51 L 22 104/58 98 12/25/18 12:00 98.6 F 48 L 55 L 23 104/58 96 12/25/18 11:51 54 L 26 H 117/68 99 12/25/18 11:41 54 L 17 116/63 99 12/25/18 11:30 52 L 19 116/63 97 12/25/18 11:21 50 L 20 116/63 98 12/25/18 11:11 51 L 18 108/53 99 12/25/18 11:00 49 L 12 108/53 96 12/25/18 10:51 45 L 19 104/61 98 12/25/18 10:41 49 L 16 105/51 98 12/25/18 10:30 70 18 105/51 96 12/25/18 10:21 57 L 12 109/56 99 12/25/18 10:11 51 L 20 109/53 97 12/25/18 10:00 52 L 23 109/53 98 12/25/18 09:51 55 L 13 110/68 98 12/25/18 09:41 51 L 21 103/64 97 12/25/18 09:30 53 L 21 103/64 96 12/25/18 09:21 52 L 20 100/59 97 12/25/18 09:11 56 L 13 108/69 99 12/25/18 09:00 50 L 14 108/69 99 12/25/18 08:51 56 L 21 101/71 99 12/25/18 08:41 57 L 18 103/61 98 12/25/18 08:30 49 L 12 103/61 98 12/25/18 08:21 45 L 20 104/62 98 12/25/18 08:11 51 L 24 98/58 98 12/25/18 08:00 98.8 F 53 L 54 L 19 98/58 99 12/25/18 07:58 97 12/25/18 07:51 40 L 18 111/60 97 12/25/18 07:41 41 L 18 104/56 97 12/25/18 07:30 43 L 18 104/56 96 12/25/18 07:21 43 L 19 107/68 99 12/25/18 07:11 48 L 24 107/69 97 12/25/18 07:00 65 18 107/69 97 12/25/18 06:51 69 22 109/57 97 12/25/18 06:41 38 L 17 111/58 99 12/25/18 06:30 37 L 17 111/58 97 12/25/18 06:21 51 L 20 113/60 98 12/25/18 06:11 53 L 18 107/63 96 12/25/18 06:00 41 L 22 107/63 98 12/25/18 05:51 38 L 16 104/60 99 12/25/18 05:41 41 L 17 102/58 97 12/25/18 05:30 37 L 17 102/58 97 12/25/18 05:21 47 L 17 110/73 98 12/25/18 05:11 42 L 22 107/61 99 12/25/18 05:00 38 L 17 107/61 98 12/25/18 04:51 40 L 19 115/60 99 12/25/18 04:41 39 L 17 118/59 99 12/25/18 04:30 40 L 20 118/59 96 12/25/18 04:21 40 L 17 118/70 99 12/25/18 04:11 40 L 18 109/61 99 12/25/18 04:01 50 L 17 109/61 97 12/25/18 04:00 98.0 F 40 L 18 109/61 99 12/25/18 03:51 42 L 20 104/61 99 12/25/18 03:41 40 L 18 103/61 98 12/25/18 03:30 42 L 19 103/61 97 12/25/18 03:21 38 L 19 108/62 98 12/25/18 03:11 37 L 18 103/58 98 12/25/18 03:00 40 L 19 103/58 95 12/25/18 02:51 40 L 19 107/63 99 12/25/18 02:41 41 L 17 110/61 99 12/25/18 02:30 46 L 7 L 110/61 97 12/25/18 02:21 52 L 10 L 101/55 98 12/25/18 02:11 40 L 17 111/62 98 12/25/18 02:00 50 L 14 111/62 96 12/25/18 01:51 45 L 22 109/65 98 12/25/18 01:41 55 L 18 110/64 97 12/25/18 01:30 40 L 18 110/64 98 12/25/18 01:21 40 L 17 105/62 98 12/25/18 01:11 36 L 20 111/60 99 12/25/18 01:00 38 L 16 111/60 98 12/25/18 00:51 47 L 22 101/59 99 12/25/18 00:41 47 L 21 102/61 98 08/14/19 00:31 49 L 11 L 102/61 96 12/25/18 00:21 47 L 13 96 12/25/18 00:10 39 L 11 L 108/61 98 12/25/18 00:01 43 L 21 108/61 98 12/25/18 00:00 98.1 F 38 L 18 108/61 96 12/24/18 23:50 41 L 18 104/61 96 12/24/18 23:40 42 L 19 109/63 96 12/24/18 23:30 41 L 19 109/63 95 12/24/18 23:20 43 L 19 107/64 97 12/24/18 23:10 41 L 19 110/64 97 12/24/18 23:00 40 L 20 106/67 96 12/24/18 22:50 42 L 18 106/67 97 12/24/18 22:40 41 L 19 101/65 97 12/24/18 22:30 41 L 17 101/65 97 12/24/18 22:20 41 L 19 103/61 96 12/24/18 22:10 43 L 20 107/59 97 12/24/18 22:00 38 L 20 106/61 98 12/24/18 21:55 45 L 106/61 12/24/18 21:50 43 L 20 106/61 97 12/24/18 21:40 54 L 15 113/68 98 12/24/18 21:30 52 L 23 113/68 96 12/24/18 21:20 47 L 22 112/66 98 12/24/18 21:10 52 L 21 112/66 98 12/24/18 21:00 52 L 21 120/60 97 12/24/18 20:50 47 L 16 120/60 97 12/24/18 20:40 51 L 17 125/70 97 12/24/18 20:30 50 L 16 118/71 97 12/24/18 20:20 52 L 15 118/71 96 12/24/18 20:10 52 L 16 123/69 97 12/24/18 20:00 98.7 F 43 L 19 129/79 97 - Labs and Meds Cardiac Enzymes 12/25/18 Range/Units 03:00 CK-MB (CK-2) 221.8 H (0.0-4.0) ng/mL Lipids 12/25/18 Range/Units 03:00 Triglycerides 128 (2-149) mg/dL Cholesterol 203 H (50-199) mg/dL HDL Cholesterol 41 (40-59) mg/dL Cholesterol/HDL Ratio 4.95 % CBC 12/25/18 Range/Units 03:00 WBC 8.8 (4.5-11.0) K/mm3 RBC 4.52 (3.65-5.03) M/mm3 Hgb 14.0 (11.8-15.2) gm/dl Hct 41.4 (35.5-45.6) % Plt Count 156 (140-440) K/mm3 Lymph # 2.4 (1.2-5.4) K/mm3 [place] # 0.8 (0.0-0.8) K/mm3 Eos # 0.1 (0.0-0.4) K/mm3 Baso # 0.1 (0.0-0.1) K/mm3 Comprehensive Metabolic Panel 12/25/18 Range/Units 03:00 Sodium 141 (137-145) mmol/L Potassium 4.3 (3.6-5.0) mmol/L Chloride 102.5 (98-107) mmol/L Carbon Dioxide 26 (22-30) mmol/L BUN 14 (9-20) mg/dL Creatinine 0.9 (0.8-1.5) mg/dL Glucose 109 H (75-100) mg/dL Calcium 8.7 (8.4-10.2) mg/dL
[2018-12-26 05:31] LABS: Hematocrit 40.8 % (35.5-45.6); Hemoglobin 14.1 gm/dl (11.8-15.2); Mean Corpuscular HGB Conc 35 % (32-34); Mean Corpuscular Volume 91 fl (84-94); Platelet Count 131 K/mm3 (140-440); Red Blood Count 4.49 M/mm3 (3.65-5.03); Red Cell Distribution Width 14.8 % (13.2-15.2)
[2018-12-26 05:55] LABS: BUN/Creatinine Ratio 20; Blood Urea Nitrogen 16 mg/dL (9-20); Calcium 8.6 mg/dL (8.4-10.2); Hemolysis Index 12
[2018-12-26] MEDS: HumaLOG SUB-Q SCH ×2 (09:10→12:53)
[2018-12-26] MEDS: LOPRESSOR PO SCH (09:11)
[2018-12-26] MEDS: PLAVIX PO SCH (09:11)
[2018-12-26] MEDS: ECOTRIN PO SCH (09:11)
[2018-12-26] MEDS: SODIUM CHLORIDE FLUSH SYRINGE 10 ML IV SCH (09:11)
[2018-12-26] MEDS: IMDUR PO SCH (09:11)
--- NOTE | 2018-12-26 13:24 | Progress Note ---
Assessment and Plan - Patient Problems (1) STEMI (ST elevation myocardial infarction) Current Visit: Yes Status: Acute Qualifiers: Involved coronary artery: right coronary artery Qualified Code(s): I21.11 - ST elevation (STEMI) myocardial infarction involving right coronary artery Plan to address problem: Patient looks feels well, no further chest pain. Echocardiogram shows a well- preserved left ventricular systolic function. Ejection fraction is 50-55%. He is stable for cardiac discharge on guideline directed medical therapy as outlined, including will oral antiplatelet therapy. I have informed him of his family that there is a mid LAD stenosis of borderline severity about 75%, which will benefit from staged intervention outpatient in 4 weeks. Also recommended that the does not return to work for at least 3-4 weeks post myocardial infarction. Follow-up in our office in 7 days. Subjective Date of service: 12/26/18 Interval history: Patient looks feels well, no further chest pain. Echocardiogram shows a well- preserved left ventricular systolic function. Ejection fraction is 50-55%. He is stable for cardiac discharge on guideline directed medical therapy as outlined, including will oral antiplatelet therapy. I have informed him of his family that there is a mid LAD stenosis of borderline severity about 75%, which will benefit from staged intervention outpatient in 4 weeks. Also recommended that the does not return to work for at least 3-4 weeks post myocardial infarction. Follow-up in our office in 7 days. Objective Vital Signs Temp Pulse Pulse Resp Resp BP Pulse Ox 12/26/18 10:00 58 L 16 99 12/26/18 09:31 98.5 F 60 16 115/70 98 12/26/18 08:22 99 12/26/18 08:00 43 L 12/26/18 04:00 47 L 12/26/18 03:55 99.0 F 50 L 16 103/56 98 12/26/18 00:20 98.7 F 51 L 19 109/53 98 12/26/18 00:00 56 L 12/25/18 22:35 74 118/64 12/25/18 20:07 99.6 F 54 L 19 118/64 97 12/25/18 20:00 54 L 60 99 12/25/18 18:43 98.7 F 56 L 18 116/69 99 - Physical Examination General: No Apparent Distress HEENT: Positive: PERRL Neck: Positive: trachea midline Cardiac: Positive: Reg Rate and Rhythm Lungs: Positive: Decreased Breath Sounds Neuro: Positive: Grossly Intact Abdomen: Positive: Soft Skin: Positive: Clear Extremities: Absent: edema - Labs and Meds CBC 12/26/18 Range/Units 05:02 WBC 9.7 (4.5-11.0) K/mm3 RBC 4.49 (3.65-5.03) M/mm3 Hgb 14.1 (11.8-15.2) gm/dl Hct 40.8 (35.5-45.6) % Plt Count 131 L (140-440) K/mm3 Comprehensive Metabolic Panel 12/26/18 Range/Units 05:02 Sodium 136 L (137-145) mmol/L Potassium 4.0 (3.6-5.0) mmol/L Chloride 102.2 (98-107) mmol/L Carbon Dioxide 24 (22-30) mmol/L BUN 16 (9-20) mg/dL Creatinine 0.8 (0.8-1.5) mg/dL Glucose 120 H (75-100) mg/dL Calcium 8.6 (8.4-10.2) mg/dL - Imaging and Cardiology EKG: report reviewed (EKG consistent with inferior wall STEMI, elevated ST T waves in lead 2-lead 3 and aVF and also posterior leads)
--- NOTE | 2018-12-26 14:41 | Discharge Summary ---
Providers - Providers Date of Admission: 12/24/18 15:53 Date of discharge: 12/26/18 Attending physician: FRANNY QUINTERO 12/24/18 Consult to Cardiac Rehabilitation [CONS] Routine Reason For Exam: post pci 12/24/18 15:53 Consult to Dietitian/Nutrition [CONS] Routine Physician Instructions: Reason For Exam: Reason for Consult: Diet education 12/24/18 15:57 Consult to Physician [CONS] Routine Comment: Consulting Provider: ANA MONTIEL Physician Instructions: Reason For Exam: STEMI Primary care physician: [facility] MD DELIA Hospitalization Condition: Fair Disposition: DC-01 TO HOME OR SELFCARE Core Measure Documentation - Palliative Care Palliative Care/ Comfort Measures: Not Applicable - Core Measures Any of the following diagnoses?: acute [place] - Acute [place] Discharge Requirements Aspirin at discharge: Yes ANGEL/ARB for LVSD if EF <40%: Yes Beta lucio at discharge: Yes Statin for LDL = or >100 mg/dl on DC: Yes Exam - Constitutional Vitals: Temp Pulse Resp BP Pulse Ox 98.5 F 58 L 16 115/70 99 12/26/18 09:31 12/26/18 10:00 12/26/18 10:00 12/26/18 09:31 12/26/18 10:00 Plan Diet: low fat, low cholesterol, low salt Additional Instructions: 1. Follow up with PCP or [facility] in 1 week. 2. No work for 6 weeks. 3. No strenous activity for 6 weeks. Plan of Treatment: 1.Follow up with PCP or [facility] in 1 week. 2.Follow up with Dr. Montiel, Cardiology on 01/08/19 at 3pm [facility] ARNOLD [Primary Care Provider] - 3-5 Days Prescriptions: ISOSORBIDE MONOnitrate [Imdur ER] 30 mg PO QDAY #30 tablet AtorvaSTATin [Lipitor] 40 mg PO QHS #30 tablet Metoprolol [Lopressor TAB] 25 mg PO BID #60 tablet Clopidogrel [Plavix] 75 mg PO QDAY #30 tablet
[2018-12-26 15:23] VITALS: BP 108/55
== END 2018-12-26 15:45 | disposition home or self-care (01) | DRG 247 ==
LOC: ED 13:04 → CC1 15:53 → 4A 12-25 14:06
PROVIDERS: ADMIT Internal Medicine; ATTEND Internal Medicine
PROC: 027034Z Dilation of Coronary Artery, One Artery with Drug-eluting Intraluminal Device, Percutaneous Approach (ICD-10-PCS; principal; 2018-12-24)
PROC: 4A023N7 Measurement of Cardiac Sampling and Pressure, Left Heart, Percutaneous Approach (ICD-10-PCS; 2018-12-24)
PROC: B2111ZZ Fluoroscopy of Multiple Coronary Arteries using Low Osmolar Contrast (ICD-10-PCS; 2018-12-24)
DX: I21.19 ST elevation (STEMI) myocardial infarction involving other coronary artery of inferior wall (principal); E11.9 Type 2 diabetes mellitus without complications; I21.11 ST elevation (STEMI) myocardial infarction involving right coronary artery; M19.90 Unspecified osteoarthritis, unspecified site; F03.90 Unspecified dementia, unspecified severity, without behavioral disturbance, psychotic disturbance, mood disturbance, and anxiety; I25.10 Atherosclerotic heart disease of native coronary artery without angina pectoris; Z82.49 Family history of ischemic heart disease and other diseases of the circulatory system; Z79.84 Long term (current) use of oral hypoglycemic drugs
CPT/HCPCS: 36415; 71045; 80048; 80061; 82550; 82553; 82962; 83036; 84484; 85025; 85027; 85347; 85520; 85610; 85730; 86850; 86900; 86901; 92941; 93005; 93010; 93306; 93458; 94760; 96374; G0378; A9270-GY; C1725; C1760; C1769; C1874; C1887; C1894; C9606; J0461; J1644; J1815; J2250; J3010; J7030; J7040; Q9967

== ENCOUNTER 2019-01-14 07:19 | Day surgery (SDC) | payer OTHER ==
[2019-01-14] MEDS ORDERED: NACL 0.9% 500 ML 500 ML IV SCH (08:00)
[2019-01-14] MEDS ORDERED: ECOTRIN PO ONE (08:00)
[2019-01-14 09:10] LABS: Basophils # (Auto) 0.1 K/mm3 (0.0-0.1); Basophils % (Auto) 1.1 % (0.0-1.8); Eosinophils # (Auto) 0.2 K/mm3 (0.0-0.4); Eosinophils % (Auto) 3.3 % (0.0-4.3); Hematocrit 46.5 % (35.5-45.6); Hemoglobin 15.7 gm/dl (11.8-15.2); Lymphocytes # (Auto) 2.5 K/mm3 (1.2-5.4); Lymphocytes % (Auto) 36.2 % (13.4-35.0); Mean Corpuscular HGB Conc 34 % (32-34); Mean Corpuscular Volume 91 fl (84-94); Monocytes # (Auto) 0.6 K/mm3 (0.0-0.8); Monocytes % (Auto) 8.9 % (0.0-7.3); Platelet Count 141 K/mm3 (140-440); Red Blood Count 5.11 M/mm3 (3.65-5.03); Red Cell Distribution Width 14.4 % (13.2-15.2)
[2019-01-14 09:21] LABS: INR 1.02 (0.87-1.13)
[2019-01-14 09:23] LABS: BUN/Creatinine Ratio 23; Blood Urea Nitrogen 21 mg/dL (9-20); Calcium 9.4 mg/dL (8.4-10.2); Hemolysis Index 18
[2019-01-14] MEDS ORDERED: XYLOCAINE 2% INFILTRATI ONE (10:28)
[2019-01-14] MEDS ORDERED: CALAN ONE (10:28)
[2019-01-14] MEDS ORDERED: HEPARIN/NS 5000 UNIT/500ML(CATH LAB) 1,000 ML IR ONE (10:28)
[2019-01-14] MEDS ORDERED: HEPARIN 10,000 UNITS/10 ML ONE (10:28)
[2019-01-14] MEDS ORDERED: VERSED ONE (10:28)
[2019-01-14] MEDS ORDERED: NITROGLYCERIN SYRINGE 3 ML ONE (10:28)
[2019-01-14] MEDS ORDERED: SUBLIMAZE ONE (10:29)
--- NOTE | 2019-01-14 11:37 | Event Note ---
Date: 01/14/19 We reviewed the patient's angiograms from 12/24/2018, which show a borderline, 60-70% ostial stenosis of the mid diagonal branch of the LAD. On further review, this vessel is of very small caliber, and the patient is clinically doing well with no chest pain and no shortness of breath following his recent acute MS and right coronary intervention. We will therefore on reassessment recommended medical therapy for this small branch vessel disease, unless the patient develops further chest pain or ischemia is demonstrated on a stress thallium scan. The patient is happy with this medical strategy, and will be discharged home. Anticipated procedure is canceled.
--- NOTE | 2019-01-14 11:39 | Discharge Summary ---
Short Stay Discharge Plan Activity: advance as tolerated Weight Bearing Status: Full Weight Bearing Diet: low fat, low cholesterol, low salt Special Instructions: other (no physical restrictions) Additional Instructions: Anticipated interventional procedure was canceled, patient is recommended for conservative medical management. Follow up with: PRIMARY MD TRACIE [Primary Care Provider] - 7 Days ANA TOMPKINS MD [Staff Physician] - 7 Days
[2019-01-14 12:12] VITALS: BP 121/70
== END 2019-01-14 12:20 | disposition home or self-care (01) ==
LOC: ED 07:19 → CATHLABREC 07:19 → EDSTATUS 09:30 → CATHLABREC 12:20
PROVIDERS: ATTEND Internal Medicine Cardiovascular Disease
DX: I25.10 Atherosclerotic heart disease of native coronary artery without angina pectoris (principal); E11.9 Type 2 diabetes mellitus without complications; E78.5 Hyperlipidemia, unspecified; I10 Essential (primary) hypertension; I25.2 Old myocardial infarction; Z53.8 Procedure and treatment not carried out for other reasons; Z79.82 Long term (current) use of aspirin; Z79.899 Other long term (current) drug therapy; Z79.01 Long term (current) use of anticoagulants; Z82.49 Family history of ischemic heart disease and other diseases of the circulatory system
CPT/HCPCS: 36415; 80048; 85025; 85610; 85730; 93005; 93010; J1644; J2250; J3010; J7040